=== PATIENT | female | born 1980 | race Caucasian/White ===

== ENCOUNTER 2016-04-06 10:57 | Outpatient (CLI) | payer MEDICARE, MEDICAID ==
[2016-04-06 12:03] LABS: ALT (SGPT) 12 U/L (0-55); AST (SGOT) 9 U/L (5-34); Alkaline Phosphatase 100 U/L (40-150); Anion Gap 13 mmol/L (10-20); BUN (Urea Nitrogen) 10 mg/dL (7.0-18.7); Bilirubin, Total 0.4 mg/dL (0.2-1.2); Calc. Creatinine Clearance 0 mL/min (70-130); Calcium 9.2 mg/dL (7.8-10.44); Carbon Dioxide 24 mmol/L (22-29); Chloride 102 mmol/L (98-107); Estimated GFR-MDRD Greater than 90; Globulin 3.6 g/dL (2.4-3.5); LDL Cholesterol, Calculated 129 mg/dL; Protein, Total 7.2 g/dL (6.0-8.3)
[2016-04-06 12:32] LABS: Hemoglobin A1c 10.6 % (4.0-6.0)
== END 2016-04-06 10:58 | disposition home or self-care (01) ==
LOC: BURLAB 10:57
PROVIDERS: ATTEND Family Medicine
DX: E11.65 Type 2 diabetes mellitus with hyperglycemia (principal); E78.2 Mixed hyperlipidemia
CPT/HCPCS: 36415; 80053; 80061; 83036

== ENCOUNTER 2016-05-07 13:05 | Outpatient (CLI) | payer MEDICARE, MEDICAID ==
[2016-05-07 13:27] LABS: Mean Platelet Volume 7.1 fL (7.4-10.4); Red Blood Cell (RBC) Count 4.94 mill/uL (4.20-5.40)
[2016-05-07 13:49] LABS: Hemoglobin A1c 10.1 % (4.0-6.0)
[2016-05-07 13:56] LABS: ALT (SGPT) 13 U/L (0-55); AST (SGOT) 11 U/L (5-34); Alkaline Phosphatase 88 U/L (40-150); Anion Gap 11 mmol/L (10-20); BUN (Urea Nitrogen) 8 mg/dL (7.0-18.7); Bilirubin, Total 0.4 mg/dL (0.2-1.2); Calc. Creatinine Clearance 0 mL/min (70-130); Calcium 8.8 mg/dL (7.8-10.44); Carbon Dioxide 25 mmol/L (22-29); Chloride 105 mmol/L (98-107); Estimated GFR-MDRD Greater than 90; Globulin 3.6 g/dL (2.4-3.5); LDL Cholesterol, Calculated 134 mg/dL
[2016-05-07 14:14] LABS: Bilirubin Negative (Negative); Blood, Urine Negative (Negative); Glucose, Urine (Dipstick) 500 mg/dL (Negative); Ketone, Urine Negative (Negative); Nitrite Negative (Negative); Protein, Urine (Dipstick) Negative (Neg-Trace); Urobilinogen 0.2 mg/dL (0.2-1.0)
[2016-05-07 14:43] LABS: Methadone Not Detected (NotDetected); Methamphetamine Not Detected (NotDetected)
== END 2016-05-07 13:06 | disposition home or self-care (01) ==
LOC: BURLAB 13:05
PROVIDERS: ATTEND Psychiatry & Neurology Psychiatry
DX: Z51.81 Encounter for therapeutic drug level monitoring (principal); Z79.899 Other long term (current) drug therapy
CPT/HCPCS: 36415; 80053; 80061; 80306; 81003; 83036; 85027

== ENCOUNTER 2016-05-24 14:49 | Emergency (ER) | payer MEDICARE ==
[2016-05-24 15:16] LABS: Bilirubin Negative (Negative); Blood, Urine Moderate (Negative); Glucose, Urine (Dipstick) 500 mg/dL (Negative); Ketone, Urine Negative (Negative); Nitrite Negative (Negative); Protein, Urine (Dipstick) Trace mg/dL (Neg-Trace); Urobilinogen 0.2 mg/dL (0.2-1.0)
[2016-05-24 15:23] LABS: #Basophils 0.1 thou/uL (0.0-0.2); #Eosinphils 0.3 thou/uL (0.0-0.7); #Lymphocytes 2.9 thou/uL (1.20-3.40); #Monocytes 0.2 thou/uL (0.11-0.59); #Neutrophils 6.7 thou/uL (1.40-6.50); %Basophils 0.8 % (0.0-1.0); %Eosinophils 2.8 % (0.0-10.0); %Monocytes 2.4 % (0.0-10.0); Hematocrit 44.4 % (36.0-47.0); Mean Platelet Volume 7.3 fL (7.4-10.4); Red Blood Cell (RBC) Count 5.21 mill/uL (4.20-5.40); White Blood Cell (WBC) Count 10.2 thou/uL (4.8-10.8)
[2016-05-24 15:27] LABS: Base Excess 1.4 mEq/L (-2 - +2)
[2016-05-24 15:36] LABS: Bacteria/HPF Rare-Few HPF (None Seen); WBC/HPF 21-50 HPF (0-3)
[2016-05-24 15:54] LABS: ALT (SGPT) 11 U/L (0-55); AST (SGOT) 10 U/L (5-34); Alkaline Phosphatase 102 U/L (40-150); Anion Gap 16 mmol/L (10-20); BUN (Urea Nitrogen) 10 mg/dL (7.0-18.7); Bilirubin, Total 0.4 mg/dL (0.2-1.2); Calc. Creatinine Clearance 0 mL/min (70-130); Calcium 9.2 mg/dL (7.8-10.44); Carbon Dioxide 22 mmol/L (22-29); Chloride 102 mmol/L (98-107); Estimated GFR-MDRD 80; Globulin 4.3 g/dL (2.4-3.5); Protein, Total 7.8 g/dL (6.0-8.3)
[2016-05-24] MEDS ORDERED: cefTRIAXone\\ROCEPHIN 1 GM VIAL ONE ×2 (16:11)
[2016-05-24] MEDS ORDERED: Sodium Chloride 0.9% 0 ML ONE (16:11)
[2016-05-24] MEDS ORDERED: Insulin Regular 300 UNITS/3 ML VIAL ONE (16:11)
[2016-05-24] MEDS ORDERED: Ibuprofen 100 MG/5 ML UDCUP ONE (16:12)
== END 2016-05-24 17:28 | disposition home or self-care (01) ==
LOC: BURERS 14:49
DX: N39.0 Urinary tract infection, site not specified (principal); E11.65 Type 2 diabetes mellitus with hyperglycemia; F31.9 Bipolar disorder, unspecified; F17.210 Nicotine dependence, cigarettes, uncomplicated
CPT/HCPCS: 36416; 51701; 80053; 81003; 81015; 81025; 82805; 85025; 96361; 96365; 96372; A4353; J0696; J1815; J7050

== ENCOUNTER 2016-09-07 21:13 | Emergency (ER) | payer MEDICARE, MEDICAID | END 2016-09-07 23:19 | disposition home or self-care (01) | LOC: BURERS 21:13 | DX: T46.1X1A Poisoning by calcium-channel blockers, accidental (unintentional), initial encounter (principal); T46.4X1A Poisoning by angiotensin-converting-enzyme inhibitors, accidental (unintentional), initial encounter; T46.5X1A Poisoning by other antihypertensive drugs, accidental (unintentional), initial encounter; R11.10 Vomiting, unspecified; E11.9 Type 2 diabetes mellitus without complications; F31.9 Bipolar disorder, unspecified; F41.9 Anxiety disorder, unspecified; F20.9 Schizophrenia, unspecified; F17.210 Nicotine dependence, cigarettes, uncomplicated | CPT/HCPCS: 36416; 96360 ==

== ENCOUNTER 2016-10-05 11:42 | Outpatient (CLI) | payer MEDICARE, MEDICAID ==
[2016-10-05 12:13] LABS: Hemoglobin A1c 8.1 % (4.0-6.0)
[2016-10-05 12:42] LABS: AST (SGOT) 8 U/L (5-34); Anion Gap 12 mmol/L (10-20); Bilirubin, Total 0.4 mg/dL (0.2-1.2); Calcium 8.6 mg/dL (7.8-10.44); Carbon Dioxide 25 mmol/L (22-29); Chloride 105 mmol/L (98-107); Potassium 4.1 mmol/L (3.5-5.1); Protein, Total 6.9 g/dL (6.0-8.3); Sodium 138 mmol/L (136-145)
[2016-10-05 12:56] LABS: ALT (SGPT) 12 U/L (8-55); Albumin 3.3 g/dL (3.5-5.0); Alkaline Phosphatase 89 U/L (40-150); BUN (Urea Nitrogen) 7 mg/dL (7.0-18.7); Calc. Creatinine Clearance 0 mL/min (70-130); Estimated GFR-MDRD Greater than 90; Globulin 3.6 g/dL (2.4-3.5); Glucose 190 mg/dL (70-105)
== END 2016-10-05 11:43 | disposition home or self-care (01) ==
LOC: BURLAB 11:42
PROVIDERS: ATTEND Family Medicine
DX: E11.65 Type 2 diabetes mellitus with hyperglycemia (principal); I10 Essential (primary) hypertension
CPT/HCPCS: 36415; 80053; 83036

== ENCOUNTER 2017-01-02 21:27 | Emergency (ER) | payer MEDICARE, MEDICAID ==
[2017-01-02] MEDS ORDERED: Ketorolac Tromethamine 60 MG/2 ML VIAL ONE (21:38)
[2017-01-02] MEDS ORDERED: Sulfameth/Trimethoprim DS 800-160mg TAB ONE (22:42)
--- NOTE | 2017-01-02 23:11 | RAD ---
LEFT MIDDLE FINGER: Date: 01-02-17 FINDINGS: Fracture is seen through the terminal tuft of the distal phalanx. There is slight displacement of th e distal fragment. The DIP joint does not appear to be involved. IMPRESSION: Minimally displaced fracture of the terminal tuft of the distal phalanx. POS: HOME
[2017-01-02] MEDS ORDERED: diphenhydrAMINE 50 MG/ML VIAL ONE (23:37)
[2017-01-02] MEDS ORDERED: Ondansetron HCl/PF 4 MG/2 ML Vial ONE (23:39)
== END 2017-01-03 00:40 | disposition home or self-care (01) ==
LOC: BURERS 21:27
DX: S62.633A Displaced fracture of distal phalanx of left middle finger, initial encounter for closed fracture (principal); R11.0 Nausea; T37.0X5A Adverse effect of sulfonamides, initial encounter; E11.9 Type 2 diabetes mellitus without complications; G43.909 Migraine, unspecified, not intractable, without status migrainosus; F29 Unspecified psychosis not due to a substance or known physiological condition; F41.9 Anxiety disorder, unspecified; F31.9 Bipolar disorder, unspecified; F17.210 Nicotine dependence, cigarettes, uncomplicated; Z79.4 Long term (current) use of insulin; W23.0XXA Caught, crushed, jammed, or pinched between moving objects, initial encounter; Y92.009 Unspecified place in unspecified non-institutional (private) residence as the place of occurrence of the external cause
CPT/HCPCS: 96372; 96374; 96375; J1200; J1885; J2405